=== PATIENT | female | born 1990 | race Caucasian/White ===

== ENCOUNTER 2023-01-26 08:58 | Emergency (ER) | payer OTHER ==
[~2023-01-26] VITALS: Ht 152.4 cm; Wt 72.6 kg
== END 2023-01-26 12:10 | disposition home or self-care (01) ==
LOC: ER 08:58
DX: B34.9 Viral infection, unspecified (principal); Z20.822 Contact with and (suspected) exposure to COVID-19

== ENCOUNTER 2023-04-10 09:20 | Emergency (ER) | payer OTHER ==
[~2023-04-10] VITALS: Ht 165.1 cm; Wt 72.6 kg
[2023-04-10] MEDS ORDERED: PEPCID AC20 MG PO (17:42)
== END 2023-04-10 18:00 | disposition home or self-care (01) ==
LOC: ER 09:20
DX: K29.70 Gastritis, unspecified, without bleeding (principal); R11.10 Vomiting, unspecified

== ENCOUNTER 2023-04-12 04:00 | Emergency (ER) | payer OTHER ==
[~2023-04-12] VITALS: Ht 152.4 cm; Wt 72.6 kg
[~2023-04-12 04:00] MED LIST: PEPCID AC20 MG PO
[2023-04-12] MEDS ORDERED: PROMETRIUM200 MG PO (04:10)
[2023-04-12] MEDS ORDERED: CLIMARA1 EAC2 TD (04:10)
[2023-04-12] MEDS ORDERED: ALENDRONATE SOD70 MG PO (04:11)
== END 2023-04-12 08:17 | disposition home or self-care (01) ==
LOC: ER 04:00
DX: L50.8 Other urticaria (principal)

== ENCOUNTER 2023-06-30 07:21 | Inpatient (IN) | payer OTHER ==
[~2023-06-30] VITALS: Ht 177.8 cm; Wt 72.6 kg
[~2023-06-30 07:21] MED LIST changes: +ALENDRONATE SOD70 MG PO; +CLIMARA1 EAC2 TD; +PROMETRIUM200 MG PO
[2023-07-03] MEDS ORDERED: AMOX-CLAV 875-1 EAC1 PO (16:08)
[2023-07-03] MEDS ORDERED: DICY20TA PO (16:09)
== END 2023-07-03 16:49 | disposition home or self-care (01) | DRG 446 ==
LOC: ER 07:21 → MEDI 18:14
PROVIDERS: ADMIT Internal Medicine; ATTEND Internal Medicine
PROC: BW40ZZZ Ultrasonography of Abdomen (ICD-10-PCS; principal; 2023-06-30)
PROC: BF37ZZZ Magnetic Resonance Imaging (MRI) of Pancreas (ICD-10-PCS; 2023-06-30)
DX: K80.50 Calculus of bile duct without cholangitis or cholecystitis without obstruction (principal); R11.11 Vomiting without nausea; K52.9 Noninfective gastroenteritis and colitis, unspecified

== ENCOUNTER 2025-05-23 13:10 | Outpatient (CLI) | payer OTHER ==
[~2025-05-23 13:10] MED LIST changes: +AMOX-CLAV 875-1 EAC1 PO; +DICY20TA PO
== END 2025-05-23 13:13 | disposition home or self-care (01) ==
LOC: NUCLEAR 13:10
PROVIDERS: ATTEND Student in an Organized Health Care Education/Training Program
DX: M81.0 Age-related osteoporosis without current pathological fracture (principal)

== ENCOUNTER 2025-10-12 07:32 | Emergency (ER) | payer OTHER ==
[~2025-10-12] VITALS: Ht 154.9 cm; Wt 70.3 kg
[2025-10-12] MEDS ORDERED: PROGESTERONE200 MG PO (07:38)
[2025-10-12] MEDS ORDERED: ESTRADIOL2 MG PO (07:39)
[2025-10-12] MEDS ORDERED: 0.9 % SODIUM CHLORIDE 1,000 ML IV STA (08:31)
[2025-10-12] MEDS ORDERED: ONDANSETRON HCL 2 MG/ML VIAL IV STA (08:31)
[2025-10-12] MEDS ORDERED: FAMOTIDINE/PF 20 MG/2 ML VIAL IV STA (08:31)
[2025-10-12 09:05] LABS: BASO % 0.1 % (0.1-1.2); EOS # 0.01 (0.04-0.54); EOS % 0.1 % (0.7-7.0); LYMPH # 1.38 (1.18-3.74); LYMPH % 9.6 % (19.3-53.1); MEAN PLATELET VOLUME 9.10 fl (9.4-12.4); MONO # 0.70 (0.24-0.82); MONO % 4.8 % (4.7-12.5); NEUT # 12.28 (1.56-6.13); NEUT % 85.0 % (34.0-71.1); RED CELL DISTRIBUTION WIDTH 12.3 % (11.6-14.4)
[2025-10-12 09:32] LABS: ALT/SGPT 29.0 U/L (12-78); AST/SGOT 23.0 U/L (15-37); BILIRUBIN TOTAL 0.43 mg/dL (0.3-1.2); BILIRUBIN,CONJUGATED 0.1 mg/dL (0.0-0.2); BUN CREA RATIO 27.0 (7.0-25.0); CREATININE SERUM 0.6 mg/dL (0.55-1.02); GFR 114.43; GLUCOSE FASTING 102.0 mg/dL (65-100); OSMOLALITY SERUM 281.0 MOSM/KG (275-295)
[2025-10-12 10:23] LABS: ERYTHROCYTE SEDIMENTATION RATE 23 mm/hr (0-20)
[2025-10-12 10:49] LABS: INR 0.97
[2025-10-12] MEDS ORDERED: OMEPRAZOLE MAGN20 MG PO (13:54)
[2025-10-12] MEDS ORDERED: PEPCID AC20 MG PO (13:54)
== END 2025-10-12 14:29 | disposition home or self-care (01) ==
LOC: ER 07:33
PROVIDERS: General Practice
DX: K52.89 Other specified noninfective gastroenteritis and colitis (principal); K44.9 Diaphragmatic hernia without obstruction or gangrene